=== PATIENT | female | born 1950 | race Caucasian/White ===

== ENCOUNTER 2020-12-28 18:21 | Emergency (ER) | payer MEDICARE ==
[2020-12-28 18:26] VITALS: RESP 18; TEMP 98
[2020-12-28 19:34] LABS: Basophils # (A) 0.1 k/uL (0-0.2); Basophils % (A) 1 %; Eosinophils # (A) 0.1 k/uL (0-0.7); Eosinophils % (A) 1 %; HCT 35.6 % (34.0-46.0); HGB 11.4 gm/dL (11.4-16.0); Lymphocytes % (A) 18 %; MCH 28.2 pg (25.0-35.0); MCHC 32.1 g/dL (31.0-37.0); MCV 87.7 fL (80.0-100.0); Mean Platelet Volume 7.2; Monocytes # (A) 0.5 k/uL (0-1.0); Monocytes % (A) 4 %; Neutrophils # (A) 8.1 k/uL (1.3-7.7); Neutrophils % (A) 74 %; Platelet Count 472 k/uL (150-450); RBC 4.05 m/uL (3.80-5.40); RDW 12.4 % (11.5-15.5); WBC 10.9 k/uL (3.8-10.6)
[2020-12-28 19:36] LABS: Appearance,Urine Clear (Clear); Bacteria,Urine Rare /hpf; Bilirubin,Urine 1+ (Negative); Blood,Urine Negative (Negative); Color,Urine Dark Brown; Glucose,Urine (UA) Negative (Negative); Hyaline Casts,Urine 10 /lpf (0-2); Ketones,Urine Negative (Negative); Leukocyte Esterase,Urine Large (Negative); Mucus,Urine Rare /hpf; Nitrite,Urine Positive (Negative); PH, Urine 5.5 (5.0-8.0); Protein,Urine 1+ (Negative); RBC,Urine 3 /hpf (0-5); Specific Gravity,Urine 1.014 (1.001-1.035); Squamous Epithelial Cell,Urine 2 /hpf (0-4); WBC,Urine 12 /hpf (0-5)
[2020-12-28 19:47] LABS: ALT 12 U/L (4-34); AST 21 U/L (14-36); Acetaminophen <10.0 ug/mL; African American GFR (CKD) 30 (>60 ml/min/1.73 sqM); Albumin 4.3 g/dL (3.5-5.0); Alcohol <10 mg/dL; Alkaline Phosphatase 61 U/L (38-126); Anion Gap 14 mmol/L; Blood Urea Nitrogen 24 mg/dL (7-17); Calcium 9.2 mg/dL (8.4-10.2); Carbon Dioxide 19 mmol/L (22-30); Chloride 106 mmol/L (98-107); Glucose 146 mg/dL (74-99); Non-African American GFR(CKD) 26 (>60 ml/min/1.73 sqM); Potassium 4.5 mmol/L (3.5-5.1); Salicylate <1.0 mg/dL; Sodium 139 mmol/L (137-145); Total Bilirubin 0.6 mg/dL (0.2-1.3); Total Protein 7.2 g/dL (6.3-8.2)
[2020-12-28 19:48] LABS: Amphetamine Screen,Urine Not Detected (NotDetected); Barbiturate Screen,Urine Not Detected (NotDetected); Benzodiazepines Screen,Urine Not Detected (NotDetected); Cocaine Screen,Urine Not Detected (NotDetected); Methadone Screen, Urine Not Detected (NotDetected); Opiate Screen,Urine Not Detected (NotDetected); Oxycodone Screen, Urine Not Detected (NotDetected); Phencyclidine Screen,Urine Not Detected (NotDetected); Tricyclic Antidepressant,Urine Not Detected (NotDetected); Urn Cannabinoid Scrn Not Detected (NotDetected)
--- NOTE | 2020-12-28 22:52 | ED ---
Psych HPI - General Chief Complaint: Psychiatric Symptoms Stated Complaint: Mental health Time Seen by Provider: 12/28/20 18:28 Source: patient Mode of arrival: wheelchair - History of Present Illness Initial Comments: Bri is a 70-year-old female with no psychiatric history who is brought to the ER today by her [id number] for evaluation of depression. 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 Patient was recently diagnosed with a thyroid goiter and had biopsies done this week. Patient's [id number] recently found out that the patient's home no longer has running water when he visited the noticed that there was according situation is quite for living condition. Family is been trying to get the patient and her an apartment the patient has some anxiety about giving up her cats. Patient has become very irritable and tearful at all times and was concerned about her depression wants help for her. Patient has no suicidal thoughts or thoughts of harming herself she states she just wants to feel better. - Related Data Home Medications Medication Instructions Recorded Confirmed Citalopram Hydrobromide [CeleXA] 10 mg PO DAILY 12/28/20 12/28/20 Citalopram Hydrobromide [CeleXA] 20 mg PO DAILY 12/28/20 12/28/20 Glimepiride [Amaryl] 4 mg PO BID 12/28/20 12/28/20 Insulin Degludec [Tresiba 18 units SQ HS 12/28/20 12/28/20 Flextouch U-100] Montelukast Sodium [Singulair] 10 mg PO DAILY 12/28/20 12/28/20 Sulfamethoxazole/Trimethoprim 1 tab PO BID 12/28/20 12/28/20 [Bactrim DS 800-160 mg] amLODIPine [Norvasc] 10 mg PO HS 12/28/20 12/28/20 lisinopriL 40 mg PO HS 12/28/20 12/28/20 metFORMIN HCL [Glucophage] 1,000 mg PO BID 12/28/20 12/28/20 metFORMIN HCL [Glucophage] 500 mg PO DAILY@1500 12/28/20 12/28/20 Allergies Allergy/AdvReac Type Severity Reaction Status Date / Time ciprofloxacin [From Cipro] Allergy Unknown Verified 12/28/20 21:13 Review of Systems ROS Statement: Those systems with pertinent positive or pertinent negative responses have been documented in the HPI. ROS Other: All systems not noted in ROS Statement are negative. Past Medical History Past Medical History: Diabetes Mellitus, Hypertension History of Any Multi-Drug Resistant Organisms: None Reported Past Surgical History: Appendectomy, Hysterectomy Additional Past Surgical History / Comment(s): cataract Past Psychological History: Anxiety, Depression Smoking Status: Never smoker Past Alcohol Use History: None Reported Past Drug Use History: None Reported General Exam - General Exam Comments Initial Comments: Physical Exam GENERAL: Patient is well-developed and well-nourished. Patient is nontoxic and well-hydrated and is in no distress. HENT: Normocephalic, Atraumatic. EYES: PERRL, EOMI PULMONARY: Unlabored respirations. CARDIOVASCULAR: RRR Warm and well perfused extremities ABDOMEN: Non-distended SKIN: No rashes or bruising : Deferred NEUROLOGIC: Alert and oriented Normal speech Normal gait MUSCULOSKELETAL: Moving all extremities with no apparent injury PSYCHIATRIC: Tearful depressed, no SI/HI Limitations: no limitations Course Vital Signs 12/28/20 12/28/20 18:23 22:18 Temperature 98.0 F Pulse Rate 106 H 90 Respiratory 18 18 Rate Blood Pressure 138/82 144/78 O2 Sat by Pulse 97 97 Oximetry Medical Decision Making - Medical Decision Making Patient was seen and evaluated history was obtained from the patient and daughter bedside Patient is medically cleared for evaluation by EPS Patient has UTI currently getting Bactrim from her primary care provider has follow-up established Patient seen and evaluated by emergency psychiatric services who helped establish outpatient follow-up patient and [id number] are comfortable plan for discharge home - Lab Data Result diagrams: 12/28/20 19:25 12/28/20 19:25 Lab Results 12/28/20 12/28/20 12/28/20 Range/Units 19:25 19:25 19:25 WBC 10.9 H (3.8-10.6) k/uL RBC 4.05 (3.80-5.40) m/uL Hgb 11.4 (11.4-16.0) gm/dL Hct 35.6 (34.0-46.0) % MCV 87.7 (80.0-100.0) fL MCH 28.2 (25.0-35.0) pg MCHC 32.1 (31.0-37.0) g/dL RDW 12.4 (11.5-15.5) % Plt Count 472 H (150-450) k/uL MPV 7.2 Neutrophils % 74 % Lymphocytes % 18 % Monocytes % 4 % Eosinophils % 1 % Basophils % 1 % Neutrophils # 8.1 H (1.3-7.7) k/uL Lymphocytes # 2.0 (1.0-4.8) k/uL Monocytes # 0.5 (0-1.0) k/uL Eosinophils # 0.1 (0-0.7) k/uL Basophils # 0.1 (0-0.2) k/uL Sodium 139 (137-145) mmol/L Potassium 4.5 (3.5-5.1) mmol/L Chloride 106 (98-107) mmol/L Carbon Dioxide 19 L (22-30) mmol/L Anion Gap 14 mmol/L BUN 24 H (7-17) mg/dL Creatinine 1.90 H (0.52-1.04) mg/dL Est GFR (CKD-EPI)AfAm 30 (>60 ml/min/1.73 sqM) Est GFR (CKD-EPI)NonAf 26 (>60 ml/min/1.73 sqM) Glucose 146 H (74-99) mg/dL Calcium 9.2 (8.4-10.2) mg/dL Total Bilirubin 0.6 (0.2-1.3) mg/dL AST 21 (14-36) U/L ALT 12 (4-34) U/L Alkaline Phosphatase 61 (38-126) U/L Total Protein 7.2 (6.3-8.2) g/dL Albumin 4.3 (3.5-5.0) g/dL TSH 0.666 (0.465-4.680) mIU/L Urine Color Dark Brown Urine Appearance Clear (Clear) Urine pH 5.5 (5.0-8.0) Ur Specific [place] 1.014 (1.001-1.035) Urine Protein 1+ H (Negative) Urine Glucose (UA) Negative (Negative) Urine Ketones Negative (Negative) Urine Blood Negative (Negative) Urine Nitrite Positive H (Negative) Urine Bilirubin 1+ H (Negative) Urine Urobilinogen 2.0 (<2.0) mg/dL Ur Leukocyte Esterase Large H (Negative) Urine RBC 3 (0-5) /hpf Urine WBC 12 H (0-5) /hpf Ur Squamous Epith Cells 2 (0-4) /hpf Urine Bacteria Rare H (None) /hpf Hyaline Casts 10 H (0-2) /lpf Urine Mucus Rare H (None) /hpf Salicylates <1.0 mg/dL Urine Opiates Screen Not Detected (NotDetected) Ur Oxycodone Screen Not Detected (NotDetected) Urine Methadone Screen Not Detected (NotDetected) Ur Propoxyphene Screen Not Detected (NotDetected) Acetaminophen <10.0 ug/mL Ur Barbiturates Screen Not Detected (NotDetected) U Tricyclic Antidepress Not Detected (NotDetected) Ur Phencyclidine Scrn Not Detected (NotDetected) Ur Amphetamines Screen Not Detected (NotDetected) U Methamphetamines Scrn Not Detected (NotDetected) U Benzodiazepines Scrn Not Detected (NotDetected) Urine Cocaine Screen Not Detected (NotDetected) U Marijuana (THC) Screen Not Detected (NotDetected) Serum Alcohol <10 mg/dL Disposition Clinical Impression: Depression, UTI (urinary tract infection) Disposition: HOME SELF-CARE Condition: Stable Additional Instructions: Follow up with PCP for urinary tract infection Is patient prescribed a controlled substance at d/c from ED?: No Referrals: Nonstaff,Physician [Primary Care Provider] - 1-2 days
[2020-12-28 23:31] VITALS: BP 144/78; PULSE 90
== END 2020-12-28 22:57 | disposition home or self-care (01) ==
LOC: EC 18:21
DX: F32.9 Major depressive disorder, single episode, unspecified (principal); N39.0 Urinary tract infection, site not specified; I10 Essential (primary) hypertension; H54.61 Unqualified visual loss, right eye, normal vision left eye; F41.9 Anxiety disorder, unspecified; E11.36 Type 2 diabetes mellitus with diabetic cataract; Z88.1 Allergy status to other antibiotic agents; Z79.4 Long term (current) use of insulin; Z79.899 Other long term (current) drug therapy
CPT/HCPCS: 82075; 36415; 80053; 84443; 85025; 81001; 80306; 80143; 87086; 80179; 99284; G0480; 80320

== ENCOUNTER 2021-01-15 15:24 | Emergency (ER) | payer MEDICARE ==
[2021-01-15 15:49] VITALS: BP 125/63; PULSE 79; TEMP 98.1
[2021-01-15] MEDS ORDERED: SODIUM CHLORIDE 0.9% 1,000 ML IV STA (17:35)
[2021-01-15] MEDS ORDERED: ONDANSETRON 4 MG/2 ML VIAL IVP STA (17:35)
[2021-01-15 18:15] LABS: Basophils # (A) 0.1 k/uL (0-0.2); Basophils % (A) 1 %; Eosinophils # (A) 0.2 k/uL (0-0.7); Eosinophils % (A) 2 %; HCT 34.1 % (34.0-46.0); HGB 11.1 gm/dL (11.4-16.0); Lymphocytes # (A) 2.4 k/uL (1.0-4.8); Lymphocytes % (A) 26 %; MCH 28.9 pg (25.0-35.0); MCHC 32.6 g/dL (31.0-37.0); MCV 88.7 fL (80.0-100.0); Mean Platelet Volume 7.3; Monocytes # (A) 0.6 k/uL (0-1.0); Monocytes % (A) 6 %; Neutrophils % (A) 63 %; Platelet Count 468 k/uL (150-450); RBC 3.84 m/uL (3.80-5.40); WBC 9.6 k/uL (3.8-10.6)
[2021-01-15 18:24] LABS: Albumin 4.1 g/dL (3.5-5.0); Calcium 9.7 mg/dL (8.4-10.2); Potassium 4.6 mmol/L (3.5-5.1); Total Bilirubin 0.3 mg/dL (0.2-1.3)
--- NOTE | 2021-01-15 19:02 | XR ---
EXAMINATION TYPE: XR chest 2V DATE OF EXAM: 01/15/2021 COMPARISON: NONE HISTORY: Difficulty swallowing, dehydration and vomiting TECHNIQUE: Frontal and lateral views of the chest are obtained. FINDINGS: There is no focal air space opacity, pleural effusion, or pneumothorax seen. The cardiac silhouette size is within normal limits. There is eventration of the right hemidiaphragm. Surgical cl ips are present in the left right upper quadrant. The osseous structures are intact. IMPRESSION: No acute cardiopulmonary process.
[2021-01-15 19:10] VITALS: RESP 16
[2021-01-15 19:46] LABS: Appearance,Urine Clear (Clear); Color,Urine Yellow; Glucose,Urine (UA) Negative (Negative); PH, Urine 5.5 (5.0-8.0); Protein,Urine Trace (Negative)
[2021-01-15 19:47] LABS: Bilirubin,Urine Negative (Negative); Blood,Urine Negative (Negative); Hyaline Casts,Urine 1 /lpf (0-2); Ketones,Urine Negative (Negative); Leukocyte Esterase,Urine Moderate (Negative); Mucus,Urine Rare /hpf; Nitrite,Urine Negative (Negative); RBC,Urine 2 /hpf (0-5); Squamous Epithelial Cell,Urine 1 /hpf (0-4); Urobilinogen,Urine <2.0 mg/dL (<2.0); WBC,Urine 21 /hpf (0-5)
--- NOTE | 2021-01-15 20:18 | ED ---
Nausea/Vomiting/Diarrhea HPI - General Chief complaint: Nausea/Vomiting/Diarrhea Stated complaint: Weakness/Difficulty Swallowing Time Seen by Provider: 01/15/21 17:17 Source: patient, family Mode of arrival: wheelchair Limitations: no limitations - History of Present Illness Initial comments: Patient is a 70-year-old female presenting to the emergency Department with complaints of nausea, possible dehydration over the past week. Patient states she has a narrowing of her esophagus and has been waiting for her GI doctor to call her back for an appointment. Their plan is to enlarged her esophagus to make swallowing easier. She states over the past 3 days she has not been able to tolerate any solids, continuously has to spit up food so she has not been eating a whole lot. She states she feels a little weak. She states over the past couple weeks she is also dealing with a UTI. She denies any dysuria or abdominal pain today. No fevers or chills. No chest pains or shortness of breath. She states she is waiting for Dr. Haynes's office to call her back. She has no further complaints at this time. Upon arrival to the ER, her vitals are stable. - Related Data Home Medications Medication Instructions Recorded Confirmed Citalopram Hydrobromide [CeleXA] 10 mg PO DAILY 12/28/20 01/15/21 Glimepiride [Amaryl] 2 mg PO BID 12/28/20 01/15/21 Montelukast Sodium [Singulair] 10 mg PO DAILY 12/28/20 01/15/21 amLODIPine [Norvasc] 10 mg PO DAILY 12/28/20 01/15/21 lisinopriL 40 mg PO DAILY 12/28/20 01/15/21 metFORMIN HCL [Glucophage] 1,000 mg PO BID@0000,1200 12/28/20 01/15/21 metFORMIN HCL [Glucophage] 500 mg PO DAILY@1800 12/28/20 01/15/21 FLUoxetine HCL [PROzac] 20 mg PO DAILY 01/15/21 01/15/21 Allergies Allergy/AdvReac Type Severity Reaction Status Date / Time ciprofloxacin [From Cipro] Allergy Unknown Verified 01/15/21 18:37 Review of Systems ROS Statement: Those systems with pertinent positive or pertinent negative responses have been documented in the HPI. ROS Other: All systems not noted in ROS Statement are negative. Past Medical History Past Medical History: Diabetes Mellitus, Hypertension History of Any Multi-Drug Resistant Organisms: None Reported Past Surgical History: Appendectomy, Hysterectomy Additional Past Surgical History / Comment(s): cataract Past Psychological History: Anxiety, Depression Smoking Status: Never smoker Past Alcohol Use History: None Reported Past Drug Use History: None Reported General Exam - General Exam Comments Initial Comments: GENERAL: Patient is well-developed and well-nourished. Patient is nontoxic and in no acute distress. HEAD: Atraumatic, normocephalic. EYES: Pupils equal round and reactive to light, extraocular movements intact, sclera anicteric, conjunctiva are normal. Eyelids were unremarkable. ENT: TMs normal, nares patent, oropharynx clear without exudates. Moist mucous membranes. NECK: Normal range of motion, supple without lymphadenopathy or JVD. LUNGS: Unlabored respirations. Breath sounds clear to auscultation bilaterally and equal. No wheezes rales or rhonchi. HEART: Regular rate and rhythm without murmurs, rubs or gallops. ABDOMEN: Soft, nontender, normoactive bowel sounds. No guarding, no rebound. No masses appreciated. : Deferred MUSCULOSKELETAL: Normal extremities with adequate strength and normal range of motion, no pitting or edema. No clubbing or cyanosis. NEUROLOGICAL: Patient is alert and oriented x 3. Motor and sensory are also intact. Cranial nerves II through XII grossly intact. Symmetrical smile. Normal speech, normal gait. PSYCH: Normal mood, normal affect. SKIN: Warm, Dry, normal turgor, no rashes or lesions noted. Limitations: no limitations Course Vital Signs 01/15/21 01/15/21 15:47 19:00 Temperature 98.1 F Pulse Rate 79 Respiratory 18 16 Rate Blood Pressure 125/63 O2 Sat by Pulse 99 Oximetry Medical Decision Making - Medical Decision Making Patient is a 70-year-old female here for possible dehydration, nausea 3 days. Her vital signs are stable upon arrival. Exam is unremarkable. Labs are normal, normal white count, creatinine is a little bit elevated at 1.14 however has been higher than this in the past. Urine shows no evidence of infection at this time. Chest XR is normal. She was given a liter fluids and some Zofran. She's been resting comfortably. I discussed with patient that she is stable for discharge, she can continue to follow-up with her GI doctor regarding the difficulty in swallowing. Patient is in agreement with this plan of care. Case discussed with Dr. Gil. - Lab Data Result diagrams: 01/15/21 18:03 01/15/21 18:03 Lab Results 01/15/21 01/15/21 01/15/21 Range/Units 18:03 18:03 19:20 WBC 9.6 (3.8-10.6) k/uL RBC 3.84 (3.80-5.40) m/uL Hgb 11.1 L (11.4-16.0) gm/dL Hct 34.1 (34.0-46.0) % MCV 88.7 (80.0-100.0) fL MCH 28.9 (25.0-35.0) pg MCHC 32.6 (31.0-37.0) g/dL RDW 13.0 (11.5-15.5) % Plt Count 468 H (150-450) k/uL MPV 7.3 Neutrophils % 63 % Lymphocytes % 26 % Monocytes % 6 % Eosinophils % 2 % Basophils % 1 % Neutrophils # 6.0 (1.3-7.7) k/uL Lymphocytes # 2.4 (1.0-4.8) k/uL Monocytes # 0.6 (0-1.0) k/uL Eosinophils # 0.2 (0-0.7) k/uL Basophils # 0.1 (0-0.2) k/uL Sodium 138 (137-145) mmol/L Potassium 4.6 (3.5-5.1) mmol/L Chloride 106 (98-107) mmol/L Carbon Dioxide 22 (22-30) mmol/L Anion Gap 10 mmol/L BUN 20 H (7-17) mg/dL Creatinine 1.14 H (0.52-1.04) mg/dL Est GFR (CKD-EPI)AfAm 57 (>60 ml/min/1.73 sqM) Est GFR (CKD-EPI)NonAf 49 (>60 ml/min/1.73 sqM) Glucose 104 H (74-99) mg/dL Calcium 9.7 (8.4-10.2) mg/dL Total Bilirubin 0.3 (0.2-1.3) mg/dL AST 21 (14-36) U/L ALT 11 (4-34) U/L Alkaline Phosphatase 43 (38-126) U/L Total Protein 7.0 (6.3-8.2) g/dL Albumin 4.1 (3.5-5.0) g/dL Urine Color Yellow Urine Appearance Clear (Clear) Urine pH 5.5 (5.0-8.0) Ur Specific [place] 1.010 (1.001-1.035) Urine Protein Trace H (Negative) Urine Glucose (UA) Negative (Negative) Urine Ketones Negative (Negative) Urine Blood Negative (Negative) Urine Nitrite Negative (Negative) Urine Bilirubin Negative (Negative) Urine Urobilinogen <2.0 (<2.0) mg/dL Ur Leukocyte Esterase Moderate H (Negative) Urine RBC 2 (0-5) /hpf Urine WBC 21 H (0-5) /hpf Ur Squamous Epith Cells 1 (0-4) /hpf Hyaline Casts 1 (0-2) /lpf Urine Mucus Rare H (None) /hpf Disposition Clinical Impression: Dehydration, Nausea Disposition: HOME SELF-CARE Condition: Stable Instructions (If sedation given, give patient instructions): Dehydration (ED) Additional Instructions: Please return to the Emergency Department if symptoms worsen or any other concerns. Continue to increase your fluid intake. Follow up with GI as discussed. Is patient prescribed a controlled substance at d/c from ED?: No Referrals: Nonstaff,Physician [Primary Care Provider] - 1-2 days Bassam Salcedo MD [STAFF PHYSICIAN] - 1-2 days Lizeth Haynes MD [STAFF PHYSICIAN] - 1-2 days Time of Disposition: 20:17
== END 2021-01-15 20:30 | disposition home or self-care (01) ==
LOC: EC 15:24
DX: E86.0 Dehydration (principal); R11.2 Nausea with vomiting, unspecified; E11.9 Type 2 diabetes mellitus without complications; I10 Essential (primary) hypertension; Z88.1 Allergy status to other antibiotic agents; Z79.84 Long term (current) use of oral hypoglycemic drugs
CPT/HCPCS: 99285; 36415; 80053; 85025; 81001; 87086; 71046; J2405

== ENCOUNTER 2022-09-14 08:30 | Day surgery (SDC) | payer MEDICARE ==
[2022-09-10 13:00] VITALS: BMI 24.7
[~2022-09-14 08:30] MED LIST: HYDROmorphone 0.5 MG/0.5 ML SYRINGE IVP PRN; LACTATED RINGERS 1,000 ML IV SCH; LIDOCAINE 1% (10MG/ML) FOR IV START INTRADERMA PRN; ONDANSETRON 4 MG/2 ML VIAL IVP PRN
[2022-09-14 08:53] VITALS: RESP 16; TEMP 97.7
[2022-09-14 09:06] LABS: Glucose,Whole Blood 188 mg/dL (70-110)
[2022-09-14] MEDS ORDERED: LIDOCAINE 2% INJ 20 MG/ML (2 ML VIAL) ONE (09:27)
[2022-09-14] MEDS ORDERED: PROPOFOL 10 MG/ML 20 ML VIAL IV ONE (09:27)
--- NOTE | 2022-09-14 09:40 | P.PCN ---
Date of Procedure: 09/14/22 Procedure(s) Performed: BRIEF HISTORY: Patient is a 72-year-old, pleasant, white female scheduled for an upper endoscopy as a part of evaluation of progressive dysphagia to solids. She has long-standing history of gastric esophageal folds and was diagnosed with esophageal stricture in June 2021. She has been on omeprazole 20 mg twice daily and because of worsening dysphagia she is scheduled for an upper endoscopy with dilation today.. PROCEDURE PERFORMED: Esophagogastroduodenoscopy with dilation. PREOPERATIVE DIAGNOSIS: History of esophageal stricture/progressive dysphagia to solids IV sedation per anesthesia. PROCEDURE: After informed consent was obtained, the patient was brought into the endoscopy unit. IV sedation was administered by Anesthesia under continuous monitoring. Initially the Olympus GIF-140 video endoscope was inserted into the mouth. Esophagus intubated without any difficulty. It was gradually advanced into the distal esophagus with of was a tight stricture noted and with gentle palpation was able to advance the scope into the stomach and duodenum and carefully examined. The bulb and the second part of the duodenum appeared normal. The scope at this time was withdrawn to the stomach, adequately insufflated with air, and upon careful examination, mucosa of the antrum, body, cardia and the fundus appeared normal. The scope was then withdrawn into the esophagus. The size hiatal hernia noted The GE junction was located at 39 cm from the incisors. There was a tight distal esophageal stricture located at 35 cm from the incisors and this was dilated using 12 and 13.5 mm TTS balloon in a sequential fashion for 30 seconds. At the site of the stricture the mucosa appeared very friable with erosions consistent with LA grade C reflux esophagitis. The rest of the esophagus appeared normal. The patient tolerated the procedure well. IMPRESSION: 1. Tight distal esophageal stricture at 35 cm from the incisors status post balloon dilation using 12 and 13.5 limited TTS balloon as described above. 2. Moderate size hiatal hernia. 3. LA grade C reflux esophagitis RECOMMENDATIONS: The findings of this examination were discussed with the patient as well as a family. She was advised to remain on a clear liquid diet today. Continue with omeprazole 20 mg twice daily and follow antireflux measures..
[2022-09-14 09:56] VITALS: BP 206/83; PULSE 66
== END 2022-09-14 10:26 | disposition home or self-care (01) ==
LOC: ORWHC2ENDO 08:30
PROVIDERS: ATTEND Internal Medicine Gastroenterology
DX: K22.2 Esophageal obstruction (principal); K44.9 Diaphragmatic hernia without obstruction or gangrene; K21.00 Gastro-esophageal reflux disease with esophagitis, without bleeding; I10 Essential (primary) hypertension; E11.9 Type 2 diabetes mellitus without complications; F41.8 Other specified anxiety disorders; Z79.899 Other long term (current) drug therapy; Z98.890 Other specified postprocedural states; Z90.89 Acquired absence of other organs
CPT/HCPCS: 43249; J2704; J2001; C1726

== ENCOUNTER 2023-11-01 08:51 | Day surgery (SDC) | payer MEDICARE ==
[2023-11-01] MEDS: LACTATED RINGERS 1,000 ML IV SCH (09:45)
[2023-11-01 09:49] LABS: Glucose,Whole Blood 159 mg/dL (70-110)
[2023-11-01] MEDS ORDERED: LIDOCAINE 2% (PF) 20 MG/ML 5 ML VIAL ONE (10:03)
[2023-11-01] MEDS ORDERED: PROPOFOL 10 MG/ML 20 ML VIAL IV ONE (10:03)
[2023-11-01 10:11] VITALS: RESP 16; TEMP 97.6
--- NOTE | 2023-11-01 10:17 | P.PCN ---
Date of Procedure: 11/01/23 Procedure(s) Performed: BRIEF HISTORY: Patient is a 73-year-old, pleasant, white female scheduled for an upper endoscopy as a part of evaluation of progressive dysphagia to solids for the last several months duration. Last EGD with dilation was done in August 2022 and was noted to have a tight distal esophageal stricture was dilated.. PROCEDURE PERFORMED: Esophagogastroduodenoscopy with balloon dilation. PREOPERATIVE DIAGNOSIS: History of GERD and progressive dysphagia to solids. IV sedation per anesthesia. PROCEDURE: After informed consent was obtained, the patient was brought into the endoscopy unit. IV sedation was administered by Anesthesia under continuous monitoring. Initially the Olympus GIF-140 video endoscope was inserted into the mouth. Esophagus intubated without any difficulty. In the distal esophagus there was esophageal stricture identified and with gentle manual patient I was able to advance the scope into the stomach and duodenum and carefully examined. The bulb and the second part of the duodenum appeared normal. The scope at this time was withdrawn to the stomach, adequately insufflated with air, and upon careful examination, mucosa of the antrum, body, cardia and the fundus appeared normal. The scope was then withdrawn into the esophagus. Small hiatal hernia noted. The GE junction was located at 39 cm from the incisors. There was a distal esophageal stricture extending from 34-38 cm from the incisors and this was dilated using 12 and 13.5 mm TTS balloon in a sequential fashion for 30 seconds. There was some mucosal erythema identified consistent with esophagitis. The rest of the esophagus appeared normal and the patient tolerated the procedure well. . IMPRESSION: 1. Long benign-appearing distal esophageal stricture extending from 34-38 cm from the incisors status post post balloon dilation us12 and 13.5 mm TTS balloon 2. Small hiatal hernia Recommendations: findings of this examination were discussed with the patient as well as a family. She was advised to be on clear liquids for lunch today. Continue with omeprazole 20 mg twice daily and follow antireflux measures and use Pepcid at bedtime. Follow up in office in 6 weeks.
[2023-11-01 11:05] LABS: Glucose,Whole Blood 159 mg/dL (70-110)
[2023-11-01 11:21] VITALS: BP 192/97; PULSE 78
== END 2023-11-01 11:13 | disposition home or self-care (01) ==
LOC: ORWHC2ENDO 08:51
PROVIDERS: ATTEND Internal Medicine Gastroenterology
DX: K22.2 Esophageal obstruction (principal); K44.9 Diaphragmatic hernia without obstruction or gangrene; K21.9 Gastro-esophageal reflux disease without esophagitis; I10 Essential (primary) hypertension; E11.9 Type 2 diabetes mellitus without complications; Z79.84 Long term (current) use of oral hypoglycemic drugs; Z79.899 Other long term (current) drug therapy; Z88.1 Allergy status to other antibiotic agents
CPT/HCPCS: 43249; J2704; J2001; C1726